=== PATIENT | female | born 1980 | race Caucasian/White ===

== ENCOUNTER 2021-08-18 07:57 | Outpatient (CLI) | payer BC, SELFPAY ==
--- NOTE | 2021-08-18 08:08 | MM_ITS ---
WS: [id number] SCREENING DIGITAL MAMMOGRAM WITH CAD HISTORY: SCREENING COMPARISON: None available. Bilateral CC and MLO views submitted. Computer aided detection analyzed. Breast composition: The breasts are heterogeneously dense, which may obscure small masses. Mild asymm etry with thickening of the trabecula in the central, mid RIGHT breast. There is no distortion of tis sues. These findings would probably improve with better compression. There are no calcifications. MM/[place] [id number] IMPRESSION: BI-RADS: 0-Incomplete: Need additional imaging evaluation FOLLOW UP: Need Additional Imaging RIGHT breast: Additional imaging recommended with better compression central to the nipple. Spot compression views (CC and MLO). True ML. Ultrasound to follow if abnormality persists.
== END 2021-08-18 07:58 | disposition home or self-care (01) ==
LOC: RADSHAW 08:02
PROVIDERS: Visit Provider Nurse Practitioner Family
DX: Z12.31 Encounter for screening mammogram for malignant neoplasm of breast (principal)
CPT/HCPCS: 77067

== ENCOUNTER 2021-09-08 08:13 | Outpatient (CLI) | payer BC, SELFPAY ==
--- NOTE | 2021-09-08 08:19 | US_ITS ---
WS: [id number] Right breast ultrasound, 09/08/2021 Clinical Data: ABNORMAL MAMMO Comparison: Mammogram, 09/08/2021 Findings: At the 12:00 position of the right breast there is a simple cyst measuring 0.44 x 1.08 x 1.18 cm. Th ere was a second small cyst measuring 0.31 x 0.57 x 0.72 cm also in the 12:00 position. Only normal b reast tissue was noted. There were no masses. US/US breast RT limited* [id number] Impression: 1. 2 small cysts in the 12:00 position in the right breast. 2. Return to annual screening mammograms. BIRADS: 2-Benign FOLLOW UP: 1 Year Follow-up
--- NOTE | 2021-09-08 08:19 | MM_ITS ---
WS: [id number] Right breast diagnostic 3D tomosynthesis digital mammogram, 09/08/2021 Clinical Data: ABNORMAL MAMMO Comparison: 08/18/2021. Findings: Right breast compression CC, right MLO and right ML views were obtained. The breast tissue showed het erogeneous density. There are no spiculated masses or clustered calcifications. There were no seconda ry signs of carcinoma. MM/[place] [id number] Impression: 1. Negative right breast mammogram. 2. Right breast ultrasound will be performed. BIRADS: 2-Benign FOLLOW UP: See Report The CAD ends down checker was used.
== END 2021-09-08 08:14 | disposition home or self-care (01) ==
LOC: RADSHAW 08:15
PROVIDERS: Visit Provider Nurse Practitioner Family
DX: N60.01 Solitary cyst of right breast (principal); R92.8 Other abnormal and inconclusive findings on diagnostic imaging of breast
CPT/HCPCS: 76642; 77061